=== PATIENT | female | born 1965 | race Caucasian/White ===

== ENCOUNTER 2023-02-22 15:58 | Emergency (ER) | payer OTHER ==
[~2023-02-22] VITALS: Ht 170.2 cm; Wt 104.3 kg
[2023-02-22 16:00] VITALS: BP_SYST 160
[2023-02-22 17:00] VITALS: BP_SYST 160
== END 2023-02-22 17:00 | disposition left against medical advice (07) ==
LOC: SED 15:58
DX: R10.9 Unspecified abdominal pain (principal); R11.0 Nausea; R20.2 Paresthesia of skin; Z53.21 Procedure and treatment not carried out due to patient leaving prior to being seen by health care provider
CPT/HCPCS: 99281